=== PATIENT | male | born 2000 | race Caucasian/White ===

== ENCOUNTER → 2020-07-06 11:23 | Outpatient (CLI) | payer OTHER, BC, SELFPAY ==
[2020-07-06 14:00] LABS: Urine N gonorrhoeae NOT DETECTED
[2020-07-06 14:06] LABS: Urine Chlamydia DETECTED
[2020-07-07 03:09] LABS: HBsAg Screen Negative (Negative); Hepatitis A Antibody IgM Negative (Negative); Hepatitis B Core Antibody IgM Negative (Negative); Hepatitis C Antibody <0.1 s/co ratio (0.0-0.9)
[2020-07-07 07:39] LABS: RPR Screen Non Reactive (Non Reactive)
[2020-07-07 11:52] LABS: HIV 1 & 2 Ab/Ag 4th Gen Combo NEGATIVE (NEGATIVE)
[2020-07-07 21:38] LABS: HSV I/II IgM <0.91 Ratio (0.00-0.90)
== END ==
PROVIDERS: PCP Family Medicine; Referring Provider Family Medicine; Visit Provider Family Medicine
DX: A64 Unspecified sexually transmitted disease (principal)
CPT/HCPCS: 36415; 80074; 86592; 86694; 87389; 87491; 87591